=== PATIENT | female | born 1990 | race Caucasian/White ===

== ENCOUNTER 2025-08-04 08:57 | Emergency (ER) | payer OTHER, SELFPAY ==
[2025-08-04 09:48] VITALS: BP 130/91; PULSE 116; RESP 36; O2SAT 99; BMI 33.0
--- NOTE | 2025-08-04 10:07 | PD.EDRME ---
Rapid Medical Screening Exam RME Arrival date/time: 08/04/25 08:57 Chief Complaint: General Adult/Misc Complain Time Seen by Provider: 08/04/25 09:32 Vital signs: Vital Signs Pulse Rate 116 H 08/04/25 09:48 Respiratory Rate 36 H 08/04/25 09:48 Blood Pressure 130/91 H 08/04/25 09:48 Pulse Oximetry (%) 99 08/04/25 09:48 Oxygen Delivery Method Room Air 08/04/25 09:48 RME Narrative: This is a 35-year-old female that comes into the emergency room with complaints of nausea vomiting and flank pain on the left-hand side. Patient states she is very anxious. Patient's thinks that she got some food poisoning yesterday from eating raising canes. Patient did have an alcoholic beverage but states that she only had 1. History of lap cholecystectomy and biliary stenting and then possibly having it removed in the past. I have greeted and performed a focused initial assessment of this patient. Initial appropriate labs ordered at this time. A comprehensive ED assessment and evaluation of the patient and analysis of all test and completion of medical decision making process will be conducted by additional ED provider. Exam: No pain to palpation to abdomen. Lung sounds are clear. Patient anxious upon assessment. Clinical Impression: Abdominal pain, food poisoning UTI differential
[2025-08-04] MEDS: ONDANSETRON ODT 4 MG TABRAP PO (10:19)
[2025-08-04 10:26] LABS: Basophils # (Auto) 0.1 Thou/mm3 (0.0-0.2); Basophils % (Auto) 0 % (0-2.5); Eosinophils # (Auto) 0.0 Thou/mm3 (0.0-0.5); Eosinophils % (Auto) 0 % (0-10); Hematocrit 46.5 % (36.0-46.0); Hemoglobin 15.9 g/dL (12.0-16.0); Immature Granulocytes Auto 0.06 Thou/mm3 (0.00-0.00); Lymphocytes # (Auto) 0.9 Thou/mm3 (1.0-4.8); Lymphocytes % (Auto) 6 % (10-50); Mean Corpuscular HGB Conc 34.2 g/dl (31.0-37.0); Mean Corpuscular Hemoglobin 29.0 pg (25.0-35.0); Mean Corpuscular Volume 85 fL (80-100); Monocytes # (Auto) 0.5 Thou/mm3 (0.0-0.8); Monocytes % (Auto) 3 % (0-12); Neutrophils # (Auto) 13.9 Thou/mm3 (1.8-7.7); Neutrophils % (Auto) 90 % (37-80); Nucleated Red Blood Cell # 0.00 Thou/mm3 (0.00-0.00); Nucleated Red Blood Cell % 0 /100 WBC (0); Platelet Count 394 Thou/mm3 (140-440); RDW Standard Deviation 36.7 fL (36.4-46.3); Red Blood Count 5.48 Miln/mm3 (4.00-5.20); White Blood Count 15.4 Thou/mm3 (3.6-11.0)
[2025-08-04 10:53] LABS: Collection Type, Urine Voided
--- NOTE | 2025-08-04 10:55 | XR_ITS ---
Examination: CT abdomen and pelvis without contrast. Coronal 3-D reconstructions. Sagittal 2-D reconstructions. Date and time of exam: August 04, 2025, 11:17 a.m. INDICATIONS: Lower abdominal pain nausea vomiting today CTDI: vol (mGy): 10.7 DLP: (mGycm): 563 Technique: Axial images of the abdomen have been obtained, 3 mm slice thickness Intravenous contrast material has not been administered. Low dose protocols were performed. One or more of the following dose reduction techniques were used; automated exposure control, adjustment of the mA and/or KV according to patient size, use of iterative reconstruction technique. Findings: No visualized liver or splenic lesion Absent gallbladder, no extrahepatic biliary tract dilatation No pancreatic edema Mild renal scarring No renal or ureteral calculi, no hydronephrosis Aorta normal size No pericecal inflammatory change No diverticulitis Normal appendix Mild fluid distended small bowel loops Retroverted uterus Moderate disc narrowing L4-L5 IMPRESSION: No renal or ureteral calculi, no hydronephrosis Normal appendix Mildly fluid distended small bowel loops, consider enteritis, ileus
--- NOTE | 2025-08-04 10:56 | EDNOTE_ITS ---
<Statement entered by Linda David MD - 08/11/25 14:17> As co-signing physician, I was present and available for consult prn. I concur with the plan and care as documented by the midlevel provider. ED General RME/HPI General Chief complaint: General Adult/Misc Complain Stated complaint: FOOD POISONING, WEAK, PANIC ATTACK, N/V Time Seen by Provider: 08/04/25 09:32 Arrival date/time: 08/04/25 08:57 CC: Abdominal pain with nausea vomiting and watery diarrhea HPI onset at 5 AM this morning. Denies any prior history of similar events denies fever chills shortness of breath or difficulty breathing denies bloody urination or painful urination. RME / HPI RME / HPI narrative: This is a 35-year-old female that comes into the emergency room with complaints of nausea vomiting and flank pain on the left-hand side. Patient states she is very anxious. Patient's thinks that she got some food poisoning yesterday from eating raising canes. Patient did have an alcoholic beverage but states that she only had 1. History of lap cholecystectomy and biliary stenting and then possibly having it removed in the past. I have greeted and performed a focused initial assessment of this patient. Initial appropriate labs ordered at this time. A comprehensive ED assessment and evaluation of the patient and analysis of all test and completion of medical decision making process will be conducted by additional ED provider. Exam: No pain to palpation to abdomen. Lung sounds are clear. Patient anxious upon assessment. Impression: Abdominal pain, food poisoning UTI differential Related Data Previous Rx's ?Medication ?Instructions ?Recorded ciprofloxacin HCl 500 mg tablet 500 mg PO BID #10 tabs 08/04/25 (Cipro) dicyclomine 20 mg tablet 20 mg PO BID #14 tabs metronidazole 500 mg tablet 500 mg PO BID 5 days #10 t abs 08/04/25 ondansetron 4 mg disintegrating 4 mg PO Q8H #10 tabs 1 tablet Allergies Allergy/AdvReac Type Severity Reaction Status Date / Time Penicillins Allergy Severe swelling, Verified 08/04/25 09:00 Rash Review of Systems Review of Systems Narrative Review of Systems: GEN: No fever, no chills, no weight loss EYES: No discharge, no visual changes, no pain HEENT: No ear pain, no congestion, no sore throat PULM: No shortness of breath, no cough, no congestion CV: No chest pain, no dyspnea on exertion, no palpitations GI: + nausea, no vomiting, no diarrhea, + pain, no constipation : No frequency, no urgency, no dysuria MUSC/SKEL: No joint pain, no back pain SKIN: No rash PSYCH: No hallucinations, no depression HEME/LYMPH: No easy bleeding or bruising tendencies NEURO: No weakness, no headache Past Medical History Past Medical History NEUROLOGIC: Negative Neurological Disorders or Seizures CARDIAC: Negative Cardiac Disorders, Congestive Heart Failure, Edema or Varicose Veins RESPIRATORY: Positive Asthma (USES INHALER PRN- LAST USED 1 YEAR AGO); Negative Chronic Obstructive Pulmonary Disease (COPD) GASTROINTESTINAL: Positive Gastrointestinal Disorders and Gall Bladder Disease; Negative Hepatitis GENITOURINARY: Negative Genitourinary Disorders or Renal Disease REPRODUCTIVE: Positive Genital Herpes and Previous Pregnancies (X4); Negative Pelvic Inflammatory Disease MUSCULOSKELETAL: Negative Musculoskeletal Disorders ENDOCRINE: Negative Endocrine Disorders, Diabetes Mellitus Type 1 or Diabetes Mellitus Type 2 HEMATOLOGIC: Positive Blood Disorders and Anemia (IN HIGH SCHOOL); Negative Leukemia, Hemophilia, Thalassemia, Sickle Cell Disease or Clotting Problems PSYCHO/SOCIAL: Positive Anxiety (no meds); Negative Psychiatric Problems OTHER HISTORY: Positive Hospitalization (GALLBLADDER) and Chicken Pox; Negative Autoimmune Disease, Down Syndrome, Developmental Delay, Shingles, Falls, Blood Transfusions, Anesthesia Reactions, Organ Transplant, Chemotherapy, Radiation Therapy, Hyperbaric Therapy, MRSA, VRSA, Vancomycin-Resistant Enterococci, Human Immunodeficiency Virus (HIV), Measles, Mumps, Rubella ([place] Measles), Pertussis, Clostridium Difficile or Cancer Family History FAMILY HISTORY: Positive Family Surgery (FATHER APPY, MOTHER HYSTERECTOMY); Negative Family Neurologic Problems, Family Psychiatric Problems (MOTHER ANXIET Y, BROTHER ANXIETY), Family Respiratory Disorders, Family Cardiac Disorders, Family Gastrointestinal Problems, Family Cancer or Family Anesthesia Reaction Surgical History SURGICAL: Positive Oral Surgery, Abdominal Surgery and Section (X2); Negative Cardiac Surgery, Endocrine Surgery, Ear Surgery, Nephrectomy, Joint Replacement, Neurologic Surgery, Mastectomy, Vasectomy or Organ Transplant Social History SMOKING STATUS: Never smoker SECOND HAND EXPOSURE: No SUBSTANCE USE: does not use ED Exam Narrative Physical exam: [General: Obese in mild discomfort but not in any acute distress Head normocephalic HEENT: Eyes pupils are PERRLA EOMs intact all other subsystems of HEENT are within acceptable limits Neck is supple nontender Chest equal chest rise nontender to palpation Respiratory: Clear to auscultation no wheezes crackles or rubs CV: Rate rhythm is regular no murmurs rubs or clicks Abdomen: The diffuse tenderness throughout the lower abdomen no reflexive guarding no rebound tenderness no upper abdominal pain. No masses positive bowel sounds all 4 quadrants Back: No CVA tenderness no spinous process tenderness from cervical spine thoracic and lumbar spine Skin: Intact no petechiae rash induration ulceration or crepitus Extremities: Moving all extremity against resistance cap refill less than 2 seconds neurosensory intact Neuro: Awake alert oriented x3 Glascow coma 15 no focal deficits] Course Course Course Narrative: Patient has gotten significant relief with the medication and fluids, at this time we will discharge her home with stable vital signs, patient will be going home with double antibiotics antiemetic and Bentyl. Quality Measures none Orders Category Date Time Status Saline [Insert IV] NOW Care 08/04/25 10:[address] abdomen pelvis wo con Stat Exams 08/04/25 10:55 Completed CBC Stat Lab 08/04/25 10:10 Completed Comprehensive Metabolic Panel Stat Lab 08/04/25 10:10 Completed Drug Screen,Urine Stat Lab 08/04/25 10:44 Completed Lipase Stat Lab 08/04/25 10:10 Completed Urinalysis, C/S if Indicated Stat Lab 08/04/25 10:44 Completed Morphine* Inj Med 08/04/25 10:54 Discontinued 4 mg IVP X1 ONE Ondansetron Inj [Zofran Inj] Med 08/04/25 10:54 Discontinued 4 mg IVP X1 ONE Ondansetron Odt [Zofran Odt] Med 08/04/25 10:01 Discontinued 4 mg PO X1 ONE Sodium Chloride 0.9% 1000 ml [Ns] 1,000 ml Med 08/04/25 10:55 Discontinued IV 999 mls/hr Vital Signs Vital signs: Vital Signs Pulse Rate 116 H 08/04/25 09:48 Respiratory Rate 36 H 08/04/25 09:48 Blood Pressure 130/91 H 08/04/25 09:48 Pulse Oximetry (%) 99 08/04/25 09:48 Oxygen Delivery Method Room Air 08/04/25 09:48 Discharge Plan Plan Patient Disposition: HOME (Self Care) Prescriptions/Referrals Prescriptions/Med Rec: New ciprofloxacin HCl [Cipro] 500 mg tablet 500 mg PO BID Qty: 10 0RF metronidazole 500 mg tablet 500 mg PO BID 5 Days Qty: 10 0RF dicyclomine 20 mg tablet 20 mg PO BID Qty: 14 0RF ondansetron 4 mg tablet,disintegrating 4 mg PO Q8H Qty: 10 0RF Referrals: Keyur Weathers MD [Primary Care Provider, Family Practice] - In 1 week Problem List Clinical Impression: Abdominal pain, Enteritis Patient/Caregiver Discharge Instructions Education Materials: Abdominal Pain, Understanding Colitis Print Language: Marshallese Stand Alone Forms: Cecy Award Info., Patient Portal Info Letter, Work/School Release PA/DISULFURIZER TENDER Supervising Physician PA/DISULFURIZER TENDER Supervising Physician: Anselmo Jang ENP [facility] Clinical Information Provided by: patient Medical Records reviewed [facility] Meds/Rx considered, not ordered None Labs/Rad/Tests considered, not ordered None Chronic Illness/Social Conditions Explain: Cholecystectomy 2020 EKG EKG not done Labs Labs: interpreted by tx Lab(s) Interpretation(s): CBC shows a mild leukocytosis of 15.4 no anemia or thrombocytopenia CMP shows chloride of 108 CO2 of 19.6 and a glucose of 126 no other electrolyte imbalances no renal impairment transaminitis or T. bili elevation Urine is negative for urinary tract infection UDS is negative. Lipase is within acceptable limits Imaging Imaging interpretation: interpreted by tx Imaging Interpretation(s): CT shows distended small bowel loops. Medication Administration(s) Medication Administration History Discontinued Medications Sodium Chloride (Ns) 1,000 mls @ 999 mls/hr IV .Q1H1M ONE Stop: 08/04/25 11:55 Last Infusion: 08/04/25 12:27 Dose: Infused Documented By: Admin: 08/04/25 11:06 Dose: 999 mls/hr Documented By: RANDELL Morphine Sulfate (Morphine Sulf Inj 4 Mg/Ml Vial) 4 mg IVP X1 ONE Stop: 08/04/25 10:55 Last Admin: 08/04/25 11:06 Dose: 4 mg Documented By: RANDELL Ondansetron HCl (Ondansetron Odt 4 Mg Tabrap) 4 mg PO X1 ONE; Protocol Stop: 08/04/25 10:02 Last Admin: 08/04/25 10:19 Dose: 4 mg Documented By: RANDELL Ondansetron HCl (Ondansetron Inj 2 Mg/Ml Inj 2 Ml) 4 mg IVP X1 ONE; Protocol Stop: 08/04/25 10:55 Last Admin: 08/04/25 11:06 Dose: 4 mg Documented By: RANDELL
[2025-08-04] MEDS: MORPHINE SULF INJ 4 MG/ML VIAL IVP (11:06)
[2025-08-04] MEDS: SODIUM CHLORIDE 0.9% 1000 ML 1,000 ML 999 ML IV (11:06)
[2025-08-04] MEDS: ONDANSETRON INJ 2 MG/ML INJ 2 ML 4 MG IVP (11:06)
[2025-08-04 11:10] LABS: Alanine Aminotransferase 17 U/L (10-49); Albumin, Serum 5.4 gm/dL (3.5-5.0); Albumin/Globulin Ratio 1.9 (1.2-2.2); Alkaline Phosphatase 66 U/L (46-116); Anion Gap 13 (7-16); Aspartate Amino Transferase 25 U/L (0-34); BUN/Creatinine Ratio 14 Ratio (12-20); Bilirubin,Total 0.8 mg/dL (0.3-1.2); Blood Urea Nitrogen 14 mg/dL (9-23); Calcium 10.5 mg/dL (8.3-10.6); Calcium (Corrected) 10.5 mg/dL (8.5-10.1); Carbon Dioxide 19.6 mMol/L (20.0-31.0); Chloride 108 mMol/L (98-107); Creatinine (Component) 1.0 mg/dL (0.6-1.3); Estimated Creatinine Clearance 87.9 mL/min (>60); Globulin 2.8 gm/dL (2.3-3.5); Glucose 126 mg/dL (74-106); Lipase 43 U/L (12-53); Osmolality,Calculated 283 (275-295); Potassium 4.8 mMol/L (3.4-5.1); Sodium 141 mMol/L (136-145); Total Protein 8.2 gm/dL (5.7-8.2); eGFR > 60 See Note
[2025-08-04 11:11] LABS: Bacteria,Urine Rare; Bilirubin,Urine Negative (Negative); Blood,Urine Trace (Negative); Clarity,Urine Clear (Clear/Hazy); Color,Urine Yellow (Lt Yel-Yel); Culture Indicated,Urine Not Indicated; Glucose, Urine Negative (Negative); Ketones,Urine 1+ (Negative); Leukocyte Esterase,Urine Negative (Negative); Nitrite,Urine Negative (Negative); PH,Urine 6.0 (5.0-7.0); Protein,Urine Trace (Neg - Trace); RBC,Urine 4 /hpf (0-3); Specific Gravity,Urine 1.035 (1.001-1.035); Squamous Epithelial Cell,Urine 2 /hpf (0-5); Urobilinogen,Urine Negative mg/dL (0.0-1.0); WBC,Urine 1 /hpf (0-5)
[2025-08-04 11:23] LABS: Amphetamine/Methamp Scrn,U Negative (Negative); Barbiturate Screen,Urine Negative (Negative); Benzodiazepines Screen,Urine Negative (Negative); Benzoylecgonine Screen, Ur Negative (Negative); Fentanyl Screen,Urine Negative (Negative); Opiate Screen,Urine Negative (Negative); THC Screen,Urine Negative (Negative)
[2025-08-04 12:55] VITALS: BP 107/77; PULSE 78; RESP 16; O2SAT 99
== END 2025-08-04 12:56 | disposition home or self-care (01) ==
PROVIDERS: Nurse Practitioner Family; Emergency Provider Emergency Medicine; PCP Family Medicine
DX: A05.9 Bacterial foodborne intoxication, unspecified (principal); F41.0 Panic disorder [episodic paroxysmal anxiety]; N39.0 Urinary tract infection, site not specified; Z79.899 Other long term (current) drug therapy; Z90.10 Acquired absence of unspecified breast and nipple; Z90.49 Acquired absence of other specified parts of digestive tract; Z96.60 Presence of unspecified orthopedic joint implant
CPT/HCPCS: 36415; 74176; 80053; 80307; 81001; 83690; 85025; 99283; J2270; J2405; J7030; Q0162